=== PATIENT | female | born 1955 | race Caucasian/White ===

== ENCOUNTER 2019-10-26 08:39 | Emergency (ER) | payer OTHER, MEDICARE, BC ==
[2019-10-26] MEDS ORDERED: traMADol 50 MG Tab PO ONE (09:08)
--- NOTE | 2019-10-26 09:14 | EDM.PDOC ---
ED HPI GENERAL MEDICAL PROBLEM - General Chief Complaint: Head Injury Stated Complaint: HEAD INJURY/LAC Time Seen by Provider: 10/26/19 08:49 Source of Information: Reports: Patient History Limitations: Reports: No Limitations - History of Present Illness INITIAL COMMENTS - FREE TEXT/NARRATIVE: Mrs. Poe is a very pleasant 64-year-old woman who tells me that [place] just [place] to coming to the ED, striking the back of her head on one of the large stones outside their front door. She presents with a laceration to her midline posterior/superior scalp. She states that she was not knocked unconscious, and while she has generalized body aches from the fall, she states that she is otherwise uninjured. The patient is not on anticoagulant, but does take fish oil. She does not recall specifically when her last tetanus vaccination was, but states that her PCP reviews her vaccinations every year, therefore she is confident that her tetanus vaccination is up-to-date. The patient's PCP is Belle Montgomery NP. She received an influenza vaccine this season. - Related Data Allergies Allergy/AdvReac Type Severity Reaction Status Date / Time No Known Allergies Allergy Verified 10/26/19 08:45 Home Meds: Home Meds traMADol [Ultram] 1 tab PO Q6H PRN #10 tab 10/26/19 [Rx] Past Medical History - Past Health History Medical/Surgical History: Denies Medical/Surgical History Social & Family History - Tobacco Use Smoking Status *Q: Never Smoker - Recreational Drug Use Recreational Drug Use: No ED ROS GENERAL - Review of Systems Review Of Systems: Comprehensive ROS is negative, except as noted in HPI. ED EXAM, HEAD INJURY - Physical Exam Exam: See Below Exam Limited By: No Limitations General Appearance: Alert, WD/WN, No Apparent Distress Head: Normocephalic, Scalp Lacerations (Approximately 3.5 cm curvilinear/ stellate laceration to the midline superior/posterior scalp. No associated depressed skull or shelf.) Eyes: Bilateral Eye: EOMI, Normal Inspection, PERRL Ears: Normal External Exam, Normal Canal, Hearing Grossly Normal, Normal TMs Nose: Normal Inspection, Normal Mucousa, No Blood Throat/Mouth: Normal Inspection, Normal Lips, Normal Teeth, Normal Gums, Normal Oropharynx, Normal Voice, No Airway Compromise Neck: Non-Tender, Full Range of Motion, Normal Alignment, Normal Inspection Respiratory: No Respiratory Distress, Lungs Clear, Normal Breath Sounds, No Accessory Muscle Use Cardiovascular: Normal Peripheral Pulses, Regular Rate, Rhythm, No Edema, No Gallop, No JVD, No Murmur, No Rub GI/Abdominal Exam: Normal Bowel Sounds, Soft, Non-Tender, No Organomegaly, No Distention, No Abnormal Bruit, No Mass (Female) Exam: Deferred Rectal (Female) Exam: Deferred Back Exam: Full Range of Motion, Normal Inspection, NT Extremities: Normal Inspection, Normal Range of Motion, No Pedal Edema, Normal Capillary Refill Neurologic: tray packer II-XII nml As Tested, No Motor/Sensory Deficits, Alert, Oriented x 3 Skin: Normal Color, Warm/Dry ED LACERATION/WOUND & NASIMA PROC - Laceration/Wound Repair Mid-Posterior Head Lac/wound length in cm: 3.5 Appearance: Subcutaneous, Stellate, Clean Distal NVT: Neuro & Vascular Intact, No Tendon Injury Skin Prep: Saline Exploration/Debridement/Repair: Wound Explored, In a Bloodless Field, Explored to Base, No Foreign Material Found Closed with: [place] # of Sutures: 7 Drain Placement: No Sterile Dressing Applied: None Tetanus Status Addressed: Yes Complications: No Course - Vital Signs Last Recorded V/S: Last Vital Signs Temp 36.6 C 10/26/19 10:35 Pulse 51 L 10/26/19 10:35 Resp 14 10/26/19 10:35 BP 83/56 L 10/26/19 10:35 Pulse Ox 96 10/26/19 10:35 - Orders/Labs/Meds Meds: Medications Discontinued Medications Generic Name Dose Route Start Last Admin Trade Name Suyapa PRN Reason Stop Dose Admin Tramadol HCl 100 mg 10/26/19 09:08 10/26/19 09:14 Ultram PO 10/26/19 09:09 100 mg ONETIME ONE Administration Tramadol HCl Confirm 10/26/19 09:16 Ultram Administered 10/26/19 09:17 Dose 50 mg .ROUTE .STK-MED ONE - Re-Assessments/Exams Free Text/Narrative Re-Assessment/Exam: 10/26/19 09:09 On examination, the patient has an approximately 3.5 cm curvilinear/stellate laceration to her superior/posterior scalp. I placed 7 jose l across the wound , which the patient tolerated well. She will receive oral tramadol here, and I will discharge her home with a prescription for the same. The patient believes that her tetanus vaccination is up-to-date, however, she will confirm that when she follows up with her PCP in a week. 10/26/19 09:14 Reviewing the NICE criterion for a CT scan of the head following a head injury, the patient may meet criterion, as she takes fish oil, which can act as an anticoagulant. This was discussed with the patient, and she agreed to proceed with a CT scan of her head without contrast. 10/26/19 10:14 CT of the head without contrast is read by Dr. Alford as: 1. Scalp injury. 2. No acute intracranial abnormality is appreciated. 10/26/19 10:17 CT results discussed with the patient. As above, she will be discharged home with a prescription for tramadol. The jose l should be ready for removal by 11/04/2019. 10/26/19 10:37 Notified by the nurse was preparing to discharge the patient that the patient BP is 81/56, with a HR of 50. Her vitals were normal when she arrived. This change may be the result of the tramadol that she was given earlier, or perhaps a vagal reaction. I asked the nurse to get the patient some Gatorade to drink, and have her relax for while, to see if her blood pressure improves. 10/26/19 11:10 The patient's blood pressure quickly improved, and the patient was discharged. I have just been contacted, however, by [facility], who informed me that the patient is already on tramadol, and did I want to duplicate the prescription? I had them cancel the prescription. Departure - Departure Time of Disposition: 10:18 Disposition: Home, Self-Care 01 Condition: Good Clinical Impression: Fall due to ice or snow, Scalp laceration - Discharge Information *PRESCRIPTION DRUG MONITORING PROGRAM REVIEWED*: Not Applicable *COPY OF PRESCRIPTION DRUG MONITORING REPORT IN PATIENT JOHN: Not Applicable Prescriptions: traMADol [Ultram] 1 tab PO Q6H PRN #10 tab PRN Reason: Pain (Severe 7-10) Instructions: Laceration Care, Adult, [id number] Referrals: Belle Montgomery, [employer] [Primary Care Provider] - Forms: ED Department Discharge Additional Instructions: You were seen in the emergency room after slipping on ice, striking your head on a rock. Workup in the ER included a CT scan of your head, which returned normal. No intracranial injury was found. A 3.5 cm irregular laceration on the back of your scalp was stapled with 7 jose l. Keep your hair clean with ordinary shampoo when you bathe. You may blow dry your hair, but do not put product in your hair until the wound has completely healed. As discussed, you should expect that you will have some bloody drainage from the wound for the next 2 or 3 days. Take [id number] Tylenol or ibuprofen as needed for discomfort. You may also take one tablet of prescription tramadol (Ultram), up to every 6 hours, as needed for pain not relieved by Tylenol or ibuprofen. If you take tramadol, do not drive for 12 hours afterwards. Tramadol may cause constipation , so consider taking a stool softener. The jose l should be ready for removal by 11/04/2019. They can be removed at the walk-in clinic, by a nurse at your doctor's office, or in the ER. When you follow-up with your PCP, we recommend that you confirm that your tetanus vaccination is up-to-date. If any other problems, please do not hesitate to return to the ER. Sepsis Event Note - Evaluation Sepsis Screening Result: No Definite Risk - Focused Exam Vital Signs: Vital Signs Temp Pulse Resp BP Pulse Ox 10/26/19 10:35 36.6 C 51 L 14 83/56 L 96 10/26/19 08:43 36.4 C 72 16 134/68 100 Date Exam was Performed: 10/26/19 Time Exam was Performed: 11:10
[2019-10-26] MEDS ORDERED: traMADol 50 MG Tab ONE (09:16)
--- NOTE | 2019-10-26 10:12 | CT ---
Head CT Technique: Multiple axial sections through the brain were obtained. Intravenous contrast was not utilized. Comparison: No prior intracranial imaging is available. Findings: Soft tissue injury is seen posteriorly. Skin jose l are present. Ventricles along with basal cisterns and sulci over the convexities are within normal limits for the patient's age. No abnormal parenchymal densities are seen. No evidence of intracranial hemorrhage. No midline shift or mass-effect is seen. Bone window settings were reviewed. No acute calvarial abnormality is appreciated. Mastoid sinuses are clear. Visualized paranasal sinuses show nothing acute. Impression: 1. Scalp injury. 2. No acute intracranial abnormality is appreciated. Diagnostic code #2 This report was dictated in [place] Standard Time
== END 2019-10-26 11:01 | disposition home or self-care (01) ==
LOC: JD.ED 08:39
DX: S01.01XA Laceration without foreign body of scalp, initial encounter (principal); W00.0XXA Fall on same level due to ice and snow, initial encounter; Y92.838 Other recreation area as the place of occurrence of the external cause
CPT/HCPCS: 12002; 70450; 99283; A9270

== ENCOUNTER 2024-01-23 17:25 | Emergency (ER) | payer BC, MEDICARE ==
[2024-01-23] MEDS: Diphtheria,Pertussis(Acell),Tetanus Vaccine 0.5 ML Syringe IM ONE (18:42)
[2024-01-23] MEDS: Lidocaine 1% 10 ML MDV INJECT ONE (18:42)
== END 2024-01-23 19:15 | disposition home or self-care (01) ==
LOC: JD.ED 17:25
DX: S01.01XA Laceration without foreign body of scalp, initial encounter (principal); Z79.899 Other long term (current) drug therapy; Z23 Encounter for immunization; W22.09XA Striking against other stationary object, initial encounter
CPT/HCPCS: 12001; 90471; 90715; 99282-25; 99283; J3490